=== PATIENT | male | born 1950 ===

== ENCOUNTER 2018-01-22 20:37 | Emergency (ER) | payer OTHER ==
[~2018-01-22] VITALS: Ht 165.1 cm; Wt 83.9 kg
[2018-01-22 21:09] VITALS: BP_SYST 148
[2018-01-22] MEDS ORDERED: traMADol HCL HCL 50 MG TABLET (ULTRAM) PO ONE (21:30)
[2018-01-22 22:48] VITALS: BP_SYST 148
== END 2018-01-22 22:48 | disposition home or self-care (01) ==
LOC: SED 20:37
DX: K59.00 Constipation, unspecified (principal); I10 Essential (primary) hypertension; E78.00 Pure hypercholesterolemia, unspecified
CPT/HCPCS: 99283